=== PATIENT | female | born 1980 | race Caucasian/White ===

== ENCOUNTER → 2017-05-31 | Outpatient (CLI) | payer BC ==
[~2017-05-31] MED LIST: FRRS300 PO; LEVO88TA3; MTR600X PO; PRENTAB26 PO
--- NOTE | 2017-05-31 14:15 | DIAGNOSTIC IMAGING REPORT ---
ULTRASOUND OF THE PELVIS CLINICAL HISTORY: Pelvic and perineal pain. COMPARISON STUDY: No priors. TECHNIQUE: Real-time, grayscale, and color flow sonography of the pelvis is performed both transabdominally and endovaginally. Images are reviewed in the transverse and longitudinal planes. FINDINGS: Uterus: The uterus is normal in size and echotexture, measuring 7.0 x 2.8 x 4.4 cm. Nabothian cysts are noted in the cervix. Endometrium: The endometrium is normal in appearance, and the endometrial stripe is normal in thickness measuring up to 0.3 cm. Ovaries: The ovaries are normal in size and morphology. The right ovary measures 2.0 x 1.8 x 1.4 cm and the left ovary measures 1.9 x 1.1 x 1.4 cm. Normal Doppler waveforms are shown within both ovaries. Pelvis: There is no free fluid in the cul-de-sac. Prominent pelvic vessels are incidentally noted. No concerning adnexal lesion is seen. IMPRESSION: Unremarkable sonographic assessment of the pelvis. Electronically signed by: Hever Toldeo M.D. 05/31/2017 2:14 PM Dictated Date/Time: 05/31/2017 2:13 PM
== END | disposition home or self-care (01) ==
LOC: C.ULTR 13:32
PROVIDERS: ATTEND Family Medicine
DX: R10.2 Pelvic and perineal pain (principal)

== ENCOUNTER → 2017-06-14 | Outpatient (CLI) | payer BC | END | disposition home or self-care (01) | LOC: C.LABSPEC 17:38 | PROVIDERS: ATTEND Nurse Practitioner Family | DX: R10.2 Pelvic and perineal pain (principal) ==

== ENCOUNTER → 2017-08-10 | Outpatient (CLI) | payer BC | END | disposition home or self-care (01) | LOC: C.LABSPEC 15:25 | PROVIDERS: ATTEND Urology | DX: R31.29 Other microscopic hematuria (principal); N39.0 Urinary tract infection, site not specified; R30.0 Dysuria ==

== ENCOUNTER → 2017-09-03 | Outpatient (CLI) | payer BC ==
--- NOTE | 2017-09-03 09:26 | DIAGNOSTIC IMAGING REPORT ---
ABD/PELVIS COMBO CT DOSE: 532.55 mGy.cm HISTORY: Hematuria. Flank pain. R31.29 Hematuria, [id number] UTI (urinary tract infection) TECHNIQUE: Multiaxial CT images of the abdomen and pelvis were performed pre and post intravenous contrast enhancement. A dose lowering technique was utilized adhering to the principles of ALARA. COMPARISON STUDY: None. FINDINGS: The lung bases are clear. The liver, spleen, gallbladder, pancreas, kidneys, and adrenal glands are within normal limits. No bowel wall thickening or obstruction. The pelvic organs are unremarkable. No suspicious lytic or blastic osseous lesions. The kidneys enhance uniformly. Perinephric spaces are intact. There are no abnormal calcifications. Bladder is midline. Uterus is anteflexed. There is a component of moderate bladder wall thickening and slight trabeculation although the bladder is collapsed making this of questionable accuracy. Be a potential 2 cm diverticulum at the right lateral aspect of the bladder. IMPRESSION: 1. Mild bladder wall trabeculation with mild bladder wall thickening. 2. Potential 2 cm bladder diverticulum versus low-lying ovarian cyst on the right. 3. Normal upper urinary tracts. 4. All remaining components of the abdomen and pelvis are unremarkable. The above report was generated using voice recognition software. It may contain grammatical, syntax or spelling errors. Electronically signed by: Clayton Arora M.D. 09/03/2017 9:24 AM Dictated Date/Time: 09/03/2017 9:17 AM
== END | disposition home or self-care (01) ==
LOC: C.CTS 08:38
PROVIDERS: ATTEND Urology
DX: R31.29 Other microscopic hematuria (principal); N39.0 Urinary tract infection, site not specified; R30.0 Dysuria